=== PATIENT | male | born 1945 | race Caucasian/White ===

== ENCOUNTER 2020-10-21 06:15 | Inpatient (IN) | payer BC, OTHER ==
[2020-10-21 06:32] VITALS: BMI 28.8
[2020-10-21] MEDS ORDERED: SODIUM CHLORIDE 0.9% 500 ML INFUS.BAG IV ONE ×2 (06:49→07:44)
[2020-10-21] MEDS ORDERED: dilTIAZem HCL 50 MG/10 ML - 10 ML VIAL IVPUSH ONE (06:49)
[2020-10-21] MEDS ORDERED: dilTIAZem HCL 125 MG/25 ML - 25 ML VIAL ONE (06:51)
[2020-10-21] MEDS ORDERED: dilTIAZem HCL 60 MG TABLET PO ONE (07:00)
[2020-10-21 07:10] LABS: HEMATOCRIT 26.9 % (35.4-49); HEMOGLOBIN 8.7 GM/dL (11.7-16.9); MCH 25.4 pg (25.7-33.7); MCHC 32.3 g/dl (32.0-35.9); MEAN CELL VOLUME 78.5 fl (80-96); MEAN PLT VOLUME 8.3 fl (7.5-11.1); PLATELET COUNT 173 10^3/uL (134-434); RBC 3.43 M/mm3 (4.00-5.60); RDW 20.8 % (11.9-15.9)
[2020-10-21 07:20] LABS: INR 1.69 (0.83-1.09); PROTHROMBIN TIME (PATIENT) 20.1 SEC (9.7-13.0)
[2020-10-21 07:33] LABS: CHLORIDE 95 mmol/L (98-107); SODIUM 131 mmol/L (136-145)
[2020-10-21 07:35] LABS: ALBUMIN 1.3 g/dl (3.4-5.0); ANION GAP 11 MMOL/L (8-16); BLOOD UREA NITROGEN 28.7 mg/dL (7-18); CALCIUM 7.9 mg/dL (8.5-10.1); CO2 25 mmol/L (21-32); GLUCOSE,RANDOM 75 mg/dL (74-106)
[2020-10-21 07:38] LABS: SGPT/ALT 70 U/L (13-61)
[2020-10-21 07:39] LABS: CREATININE 1.3 mg/dL (0.55-1.3); SGOT/AST 68 U/L (15-37)
[2020-10-21 07:40] LABS: BILIRUBIN,TOTAL 1.4 mg/dL (0.2-1); TOT PROT 6.2 g/dl (6.4-8.2)
[2020-10-21 07:41] LABS: ALK PHOS 256 U/L (45-117)
[2020-10-21] MEDS ORDERED: PT OWN MED DRAWER 7, Y5N ONE (09:18)
[2020-10-21] MEDS ORDERED: dilTIAZem HCL 60 MG TABLET ONE (09:20)
[2020-10-21 09:24] LABS: ANISOCYTOSIS 2+; MACROCYTOSIS 0; PLATELET ESTIMATE NORMAL
[2020-10-21 11:40] LABS: ACTIVATED PTT 31.9 SECONDS (25.2-36.5)
[2020-10-21 11:44] LABS: MAGNESIUM 1.8 mg/dL (1.8-2.4)
[2020-10-21] MEDS ORDERED: DOCUSATE SODIUM 100 MG CAPSULE (FP) PO PRN (17:41)
[2020-10-21] MEDS ORDERED: HEPARIN NA (PORCINE) 5,000 UNITS/ML 1ML VIAL IVPUSH PRN (17:44)
[2020-10-21] MEDS ORDERED: AMIODARONE IN DEXTROSE,ISO-OSM 360 MG/200 ML BAG ONE (18:07)
[2020-10-21] MEDS: HEPARIN SOD,PORK IN 0.45% NACL 25,000 UNITS/500 ML INFUS.BAG IVPB SCH (19:26)
[2020-10-21] MEDS: MIRTAZAPINE 15 MG TABLET (FP) PO SCH (21:55)
[2020-10-21] MEDS ORDERED: METOPROLOL TARTRATE 25 MG TABLET (FP) PO SCH (22:00)
[2020-10-22] MEDS ORDERED: DEXTROSE 50%-WATER - 25 GM/50 ML VIAL IVPUSH ONE (01:26)
[2020-10-22] MEDS ORDERED: DEXTROSE 50%-WATER 25 GM/50 ML DISP.SYRIN ONE (01:33)
[2020-10-22] MEDS: HEPARIN NA (PORCINE) 5,000 UNITS/ML 1ML VIAL IVPUSH PRN ×2 (03:03→14:57)
[2020-10-22] MEDS: INSULIN SLIDING SCALE (NOVOLOG) 1 VIAL SQ SCH ×3 (06:05→18:11)
[2020-10-22] MEDS: TAMSULOSIN HCL 0.4 MG CAP PO SCH (09:50)
[2020-10-22] MEDS: ALLOPURINOL 300 MG TABLET (FP) PO SCH (09:50)
[2020-10-22 13:08] LABS: HEMATOCRIT 24.5 % (35.4-49); HEMOGLOBIN 8.1 GM/dL (11.7-16.9); MCH 25.7 pg (25.7-33.7); MCHC 33.1 g/dl (32.0-35.9); MEAN CELL VOLUME 77.7 fl (80-96); MEAN PLT VOLUME 8.2 fl (7.5-11.1); PLATELET COUNT 148 10^3/uL (134-434); RBC 3.16 M/mm3 (4.00-5.60); RDW 20.5 % (11.9-15.9); WHITE BLOOD COUNT 9.7 K/mm3 (4.0-10.0)
[2020-10-22 13:37] LABS: ALBUMIN 1.1 g/dl (3.4-5.0); BLOOD UREA NITROGEN 24.7 mg/dL (7-18); CALCIUM 7.8 mg/dL (8.5-10.1)
[2020-10-22 13:40] LABS: BILIRUBIN,TOTAL 1.5 mg/dL (0.2-1); TOT PROT 5.3 g/dl (6.4-8.2)
[2020-10-22] MEDS: METOPROLOL TARTRATE 25 MG TABLET (FP) PO SCH ×2 (13:49→22:05)
[2020-10-22 14:07] LABS: ANISOCYTOSIS 3+; MACROCYTOSIS 0; OVALOCYTE 1+; PLATELET ESTIMATE DECREASED; TARGET CELLS 1+
[2020-10-22] MEDS: HEPARIN SOD,PORK IN 0.45% NACL 25,000 UNITS/500 ML INFUS.BAG IVPB SCH (16:59)
[2020-10-22] MEDS: MIRTAZAPINE 15 MG TABLET (FP) PO SCH (22:05)
[2020-10-23] MEDS: HEPARIN NA (PORCINE) 5,000 UNITS/ML 1ML VIAL IVPUSH PRN ×3 (02:25→19:33)
[2020-10-23] MEDS: METOPROLOL TARTRATE 25 MG TABLET (FP) PO SCH ×3 (05:58→21:29)
[2020-10-23] MEDS: INSULIN SLIDING SCALE (NOVOLOG) 1 VIAL SQ SCH ×3 (06:04→17:02)
[2020-10-23 08:56] LABS: HEMATOCRIT 25.8 % (35.4-49); HEMOGLOBIN 8.4 GM/dL (11.7-16.9); MCH 25.4 pg (25.7-33.7); MCHC 32.6 g/dl (32.0-35.9); MEAN CELL VOLUME 77.9 fl (80-96); MEAN PLT VOLUME 8.6 fl (7.5-11.1); PLATELET COUNT 185 10^3/uL (134-434); RBC 3.31 M/mm3 (4.00-5.60); RDW 20.7 % (11.9-15.9); WHITE BLOOD COUNT 10.5 K/mm3 (4.0-10.0)
[2020-10-23 09:24] LABS: ALBUMIN 1.1 g/dl (3.4-5.0); CALCIUM 7.6 mg/dL (8.5-10.1)
[2020-10-23 09:25] LABS: MAGNESIUM 1.8 mg/dL (1.8-2.4)
[2020-10-23 09:26] LABS: BLOOD UREA NITROGEN 21.5 mg/dL (7-18)
[2020-10-23 09:28] LABS: PHOSPHOROUS 2.7 mg/dL (2.5-4.9)
[2020-10-23 09:29] LABS: BILIRUBIN,TOTAL 1.4 mg/dL (0.2-1); TOT PROT 5.1 g/dl (6.4-8.2)
[2020-10-23] MEDS: TAMSULOSIN HCL 0.4 MG CAP PO SCH (09:30)
[2020-10-23] MEDS: ALLOPURINOL 300 MG TABLET (FP) PO SCH (09:30)
[2020-10-23] MEDS: HEPARIN SOD,PORK IN 0.45% NACL 25,000 UNITS/500 ML INFUS.BAG IVPB SCH ×3 (09:33→18:44)
[2020-10-23 10:28] LABS: ANISOCYTOSIS 1+; MACROCYTOSIS 0; PLATELET ESTIMATE NORMAL
[2020-10-23] MEDS: MIRTAZAPINE 15 MG TABLET (FP) PO SCH (21:29)
[2020-10-24] MEDS: HEPARIN NA (PORCINE) 5,000 UNITS/ML 1ML VIAL IVPUSH PRN ×2 (03:09→12:39)
[2020-10-24] MEDS: METOPROLOL TARTRATE 25 MG TABLET (FP) PO SCH ×3 (06:10→21:39)
[2020-10-24] MEDS: INSULIN SLIDING SCALE (NOVOLOG) 1 VIAL SQ SCH ×3 (06:19→16:56)
[2020-10-24] MEDS ORDERED: PT OWN MED DRAWER 7, Y5N ONE ×2 (08:55→14:45)
[2020-10-24] MEDS: TAMSULOSIN HCL 0.4 MG CAP PO SCH (09:14)
[2020-10-24] MEDS: ALLOPURINOL 300 MG TABLET (FP) PO SCH (09:14)
[2020-10-24 11:29] LABS: HEMATOCRIT 24.8 % (35.4-49); HEMOGLOBIN 8.1 GM/dL (11.7-16.9); MCH 25.5 pg (25.7-33.7); MCHC 32.5 g/dl (32.0-35.9); MEAN CELL VOLUME 78.4 fl (80-96); MEAN PLT VOLUME 8.3 fl (7.5-11.1); PLATELET COUNT 197 10^3/uL (134-434); RBC 3.16 M/mm3 (4.00-5.60); RDW 20.4 % (11.9-15.9); WHITE BLOOD COUNT 9.9 K/mm3 (4.0-10.0)
[2020-10-24 11:56] LABS: CALCIUM 7.4 mg/dL (8.5-10.1)
[2020-10-24 11:57] LABS: MAGNESIUM 1.8 mg/dL (1.8-2.4)
[2020-10-24 12:00] LABS: PHOSPHOROUS 2.2 mg/dL (2.5-4.9)
[2020-10-24] MEDS ORDERED: SODIUM CHLORIDE 1,000 ML IV SCH (12:00)
[2020-10-24 12:01] LABS: BILIRUBIN,TOTAL 1.4 mg/dL (0.2-1); TOT PROT 5.2 g/dl (6.4-8.2)
[2020-10-24] MEDS: HEPARIN SOD,PORK IN 0.45% NACL 25,000 UNITS/500 ML INFUS.BAG IVPB SCH ×2 (12:42→18:17)
[2020-10-24 13:35] LABS: ANISOCYTOSIS 0; MACROCYTOSIS 0; OVALOCYTE 0; PLATELET ESTIMATE NORMAL
[2020-10-24] MEDS ORDERED: METOPROLOL TARTRATE 5 MG/5 ML VIAL IVPUSH ONE ×2 (15:58→16:36)
[2020-10-24] MEDS: SODIUM PHOSPHATE - 30 MM in SODIUM CHLORIDE 500 ML IVPB ONE ×3 (16:15→18:47)
[2020-10-24] MEDS ORDERED: HEPARIN NA (PORCINE) 5,000 UNITS/ML 1ML VIAL IVPUSH PRN (18:08)
[2020-10-24] MEDS: MIRTAZAPINE 15 MG TABLET (FP) PO SCH (21:39)
[2020-10-25] MEDS ORDERED: PT OWN MED DRAWER 7, Y5N ONE ×2 (00:23→16:52)
[2020-10-25] MEDS: HEPARIN SOD,PORK IN 0.45% NACL 25,000 UNITS/500 ML INFUS.BAG IVPB SCH ×2 (03:39→17:15)
[2020-10-25] MEDS: METOPROLOL TARTRATE 25 MG TABLET (FP) PO SCH ×3 (06:20→21:28)
[2020-10-25] MEDS: INSULIN SLIDING SCALE (NOVOLOG) 1 VIAL SQ SCH ×3 (06:23→17:00)
[2020-10-25 08:02] LABS: CHLORIDE 98 mmol/L (98-107); SODIUM 130 mmol/L (136-145)
[2020-10-25 08:04] LABS: HEMATOCRIT 24.3 % (35.4-49); HEMOGLOBIN 7.9 GM/dL (11.7-16.9); MCH 25.4 pg (25.7-33.7); MCHC 32.4 g/dl (32.0-35.9); MEAN CELL VOLUME 78.6 fl (80-96); MEAN PLT VOLUME 8.7 fl (7.5-11.1); PLATELET COUNT 191 10^3/uL (134-434); RDW 20.3 % (11.9-15.9); WHITE BLOOD COUNT 9.9 K/mm3 (4.0-10.0)
[2020-10-25 08:05] LABS: ANION GAP 6 MMOL/L (8-16); BLOOD UREA NITROGEN 19.4 mg/dL (7-18); CO2 26 mmol/L (21-32)
[2020-10-25 08:06] LABS: GLUCOSE,RANDOM 89 mg/dL (74-106)
[2020-10-25 08:08] LABS: SGOT/AST 21 U/L (15-37); SGPT/ALT 27 U/L (13-61)
[2020-10-25 08:09] LABS: CREATININE 0.8 mg/dL (0.55-1.3); PHOSPHOROUS 3.7 mg/dL (2.5-4.9)
[2020-10-25 08:10] LABS: BILIRUBIN,TOTAL 1.2 mg/dL (0.2-1); TOT PROT 4.9 g/dl (6.4-8.2)
[2020-10-25 08:11] LABS: ALK PHOS 170 U/L (45-117)
[2020-10-25 08:17] LABS: CALCIUM 6.9 mg/dL (8.5-10.1)
[2020-10-25] MEDS: ALLOPURINOL 300 MG TABLET (FP) PO SCH (10:40)
[2020-10-25] MEDS: TAMSULOSIN HCL 0.4 MG CAP PO SCH (10:41)
[2020-10-25] MEDS ORDERED: INSULIN (NOVOLOG) ASPART 100 UNITS/ML 10ML VIAL ONE (10:59)
[2020-10-25] MEDS: HEPARIN NA (PORCINE) 5,000 UNITS/ML 1ML VIAL IVPUSH PRN (14:15)
[2020-10-25 19:06] LABS: EPI CELLS 13 /uL (0-25.1); HYALINE CASTS 3 /uL (0-3.1); PH,URINE 5.5 (5.0-8.0); URINE APPEARANCE CLOUDY; URINE BACTERIA 1775 /uL (0-1359); URINE BILIRUBIN NEGATIVE (NEGATIVE); URINE COLOR DK YELLOW; URINE GLUCOSE (UA) NEGATIVE (NEGATIVE); URINE KETONE 1+ (NEGATIVE); URINE LEUK ESTERASE NEGATIVE (NEGATIVE); URINE NITRITE NEGATIVE (NEGATIVE); URINE PROTEIN 1+ (NEGATIVE); URINE RBC 9 /uL (0-23.9); URINE WBC 34 /uL (0-25.8)
[2020-10-25 19:36] LABS: YEAST NEGATIVE (NEGATIVE)
[2020-10-25 19:39] LABS: PH,URINE 7.5 (5.0-8.0); URINE APPEARANCE TURBID; URINE BILIRUBIN NEGATIVE (NEGATIVE); URINE COLOR YELLOW; URINE GLUCOSE (UA) NEGATIVE (NEGATIVE); URINE KETONE NEGATIVE (NEGATIVE); URINE PROTEIN 100 (NEGATIVE)
[2020-10-25 19:40] LABS: EPI CELLS 84.3 /uL (0-25.1); URINE BACTERIA 8419.3 /uL (0-1359); URINE LEUK ESTERASE LARGE (NEGATIVE); URINE NITRITE NEGATIVE (NEGATIVE); URINE RBC 482.6 /uL (0-23.9); URINE UROBILINOGEN 0.2 mg/dL (0.2-1.0); URINE WBC 33893.4 /uL (0-25.8); YEAST NEGATIVE (NEGATIVE)
[2020-10-25] MEDS: MIRTAZAPINE 15 MG TABLET (FP) PO SCH (21:28)
[2020-10-26] MEDS: INSULIN SLIDING SCALE (NOVOLOG) 1 VIAL SQ SCH ×3 (06:24→17:20)
[2020-10-26] MEDS: METOPROLOL TARTRATE 25 MG TABLET (FP) PO SCH ×3 (06:36→21:13)
[2020-10-26 09:01] LABS: HEMATOCRIT 22.9 % (35.4-49); HEMOGLOBIN 7.3 GM/dL (11.7-16.9); MCH 25.3 pg (25.7-33.7); MEAN CELL VOLUME 79.1 fl (80-96); MEAN PLT VOLUME 9.1 fl (7.5-11.1); PLATELET COUNT 187 10^3/uL (134-434); RDW 20.6 % (11.9-15.9); WHITE BLOOD COUNT 11.1 K/mm3 (4.0-10.0)
[2020-10-26 09:29] LABS: ALBUMIN 0.9 g/dl (3.4-5.0); CALCIUM 7.1 mg/dL (8.5-10.1)
[2020-10-26 09:32] LABS: CREATININE 0.8 mg/dL (0.55-1.3)
[2020-10-26 09:34] LABS: BILIRUBIN,TOTAL 1.8 mg/dL (0.2-1); TOT PROT 4.7 g/dl (6.4-8.2)
[2020-10-26] MEDS: HEPARIN SOD,PORK IN 0.45% NACL 25,000 UNITS/500 ML INFUS.BAG IVPB SCH (09:54)
[2020-10-26] MEDS: TAMSULOSIN HCL 0.4 MG CAP PO SCH (09:54)
[2020-10-26] MEDS: ALLOPURINOL 300 MG TABLET (FP) PO SCH (09:54)
[2020-10-26] MEDS ORDERED: CEFTRIAXONE 1 GM in DEXTROSE 5%-WATER - 50 ML IVPB SCH (15:30)
[2020-10-26] MEDS ORDERED: DEXTROSE 5%-WATER - 50 ML IVPB ONE (16:11)
[2020-10-26] MEDS ORDERED: cefTRIAXone SODIUM 1 GM VIAL ONE (16:11)
[2020-10-26] MEDS: MIRTAZAPINE 15 MG TABLET (FP) PO SCH (21:13)
[2020-10-27] MEDS: METOPROLOL TARTRATE 25 MG TABLET (FP) PO SCH ×3 (06:12→22:23)
[2020-10-27] MEDS: INSULIN SLIDING SCALE (NOVOLOG) 1 VIAL SQ SCH ×3 (06:13→18:29)
[2020-10-27 08:11] LABS: HEMATOCRIT 20.3 % (35.4-49); MCH 25.7 pg (25.7-33.7); MCHC 32.6 g/dl (32.0-35.9); MEAN CELL VOLUME 78.8 fl (80-96); MEAN PLT VOLUME 8.6 fl (7.5-11.1); PLATELET COUNT 185 10^3/uL (134-434); RBC 2.57 M/mm3 (4.00-5.60)
[2020-10-27] MEDS: TAMSULOSIN HCL 0.4 MG CAP PO SCH (08:40)
[2020-10-27 08:42] LABS: HEMOGLOBIN 6.6 GM/dL (11.7-16.9)
[2020-10-27 08:46] LABS: BILIRUBIN,TOTAL 0.8 mg/dL (0.2-1); TOT PROT 4.7 g/dl (6.4-8.2)
[2020-10-27 08:48] LABS: CALCIUM 7.2 mg/dL (8.5-10.1)
[2020-10-27 08:49] LABS: CREATININE 0.8 mg/dL (0.55-1.3)
[2020-10-27] MEDS ORDERED: MEROPENEM 1 GM in DEXTROSE 5%-WATER 100 ML IVPB SCH (10:00)
[2020-10-27] MEDS ORDERED: MEROPENEM 1 GM VIAL (RESTRICTED TO ID) IVPB ONE (10:33)
[2020-10-27] MEDS ORDERED: DEXTROSE 5%-WATER 100 ML IVPB ONE (10:34)
[2020-10-27] MEDS: ALLOPURINOL 300 MG TABLET (FP) PO SCH (10:35)
[2020-10-27] MEDS: HEPARIN SOD,PORK IN 0.45% NACL 25,000 UNITS/500 ML INFUS.BAG IVPB SCH (10:54)
[2020-10-27] MEDS ORDERED: PT OWN MED DRAWER 7, Y5N ONE (12:38)
[2020-10-27] MEDS: ERTAPENEM SODIUM 1 GM in SODIUM CHLORIDE 50 ML IVPB SCH (18:30)
[2020-10-27] MEDS: MIRTAZAPINE 15 MG TABLET (FP) PO SCH (22:24)
[2020-10-28] MEDS: METOPROLOL TARTRATE 25 MG TABLET (FP) PO SCH ×3 (06:12→22:42)
[2020-10-28] MEDS: INSULIN SLIDING SCALE (NOVOLOG) 1 VIAL SQ SCH ×3 (06:44→17:30)
[2020-10-28 08:25] LABS: HEMATOCRIT 27.6 % (35.4-49); HEMOGLOBIN 9.3 GM/dL (11.7-16.9); MCH 26.7 pg (25.7-33.7); MCHC 33.5 g/dl (32.0-35.9); MEAN CELL VOLUME 79.5 fl (80-96); MEAN PLT VOLUME 8.2 fl (7.5-11.1); PLATELET COUNT 194 10^3/uL (134-434); RBC 3.47 M/mm3 (4.00-5.60); RDW 19.3 % (11.9-15.9); WHITE BLOOD COUNT 12.5 K/mm3 (4.0-10.0)
[2020-10-28 08:54] LABS: CREATININE 0.8 mg/dL (0.55-1.3)
[2020-10-28 08:55] LABS: BLOOD UREA NITROGEN 21.3 mg/dL (7-18); CALCIUM 7.5 mg/dL (8.5-10.1); TOT PROT 5.3 g/dl (6.4-8.2)
[2020-10-28 08:57] LABS: MAGNESIUM 1.7 mg/dL (1.8-2.4)
[2020-10-28 08:58] LABS: PHOSPHOROUS 2.5 mg/dL (2.5-4.9)
[2020-10-28 09:01] LABS: ALBUMIN 1.2 g/dl (3.4-5.0); BILIRUBIN,TOTAL 1.3 mg/dL (0.2-1)
[2020-10-28] MEDS ORDERED: PT OWN MED DRAWER 7, Y5N ONE (10:55)
[2020-10-28] MEDS: TAMSULOSIN HCL 0.4 MG CAP PO SCH (10:58)
[2020-10-28] MEDS: ERTAPENEM SODIUM 1 GM in SODIUM CHLORIDE 50 ML IVPB SCH (10:58)
[2020-10-28] MEDS: ALLOPURINOL 300 MG TABLET (FP) PO SCH (10:58)
[2020-10-28] MEDS: MIRTAZAPINE 15 MG TABLET (FP) PO SCH (22:41)
[2020-10-29] MEDS: METOPROLOL TARTRATE 25 MG TABLET (FP) PO SCH ×3 (06:42→21:39)
[2020-10-29] MEDS: INSULIN SLIDING SCALE (NOVOLOG) 1 VIAL SQ SCH ×3 (07:12→18:39)
[2020-10-29] MEDS ORDERED: PT OWN MED DRAWER 7, Y5N ONE (09:43)
[2020-10-29] MEDS: AMINO ACIDS/PROTEIN HYDROLYS 30 ML LIQUID.PKT PO SCH (09:51)
[2020-10-29] MEDS: TAMSULOSIN HCL 0.4 MG CAP PO SCH (09:52)
[2020-10-29] MEDS: ERTAPENEM SODIUM 1 GM in SODIUM CHLORIDE 50 ML IVPB SCH (09:52)
[2020-10-29] MEDS: ALLOPURINOL 300 MG TABLET (FP) PO SCH (09:52)
[2020-10-29 10:11] LABS: HEMATOCRIT 24.8 % (35.4-49); MCH 25.8 pg (25.7-33.7); MCHC 32.2 g/dl (32.0-35.9); MEAN CELL VOLUME 80.2 fl (80-96); MEAN PLT VOLUME 8.4 fl (7.5-11.1); PLATELET COUNT 181 10^3/uL (134-434); RBC 3.09 M/mm3 (4.00-5.60); RDW 19.1 % (11.9-15.9); WHITE BLOOD COUNT 12.5 K/mm3 (4.0-10.0)
[2020-10-29 10:37] LABS: ALBUMIN 1.1 g/dl (3.4-5.0); BLOOD UREA NITROGEN 20.6 mg/dL (7-18); CALCIUM 7.4 mg/dL (8.5-10.1)
[2020-10-29 10:40] LABS: CREATININE 0.7 mg/dL (0.55-1.3)
[2020-10-29] MEDS: MIRTAZAPINE 15 MG TABLET (FP) PO SCH (21:38)
[2020-10-30] MEDS: METOPROLOL TARTRATE 25 MG TABLET (FP) PO SCH ×3 (06:15→21:16)
[2020-10-30] MEDS: INSULIN SLIDING SCALE (NOVOLOG) 1 VIAL SQ SCH ×3 (06:15→16:56)
[2020-10-30] MEDS ORDERED: PT OWN MED DRAWER 7, Y5N ONE (08:47)
[2020-10-30] MEDS: AMINO ACIDS/PROTEIN HYDROLYS 30 ML LIQUID.PKT PO SCH (08:59)
[2020-10-30] MEDS: TAMSULOSIN HCL 0.4 MG CAP PO SCH (08:59)
[2020-10-30] MEDS: ALLOPURINOL 300 MG TABLET (FP) PO SCH (09:01)
[2020-10-30] MEDS: ERTAPENEM SODIUM 1 GM in SODIUM CHLORIDE 50 ML IVPB SCH (09:02)
[2020-10-30] MEDS: MIRTAZAPINE 15 MG TABLET (FP) PO SCH (21:16)
[2020-10-31] MEDS: METOPROLOL TARTRATE 25 MG TABLET (FP) PO SCH ×3 (05:44→21:58)
[2020-10-31] MEDS: INSULIN SLIDING SCALE (NOVOLOG) 1 VIAL SQ SCH ×3 (06:11→17:10)
[2020-10-31] MEDS: VALSARTAN 40 MG TABLET PO SCH (09:31)
[2020-10-31] MEDS: AMINO ACIDS/PROTEIN HYDROLYS 30 ML LIQUID.PKT PO SCH (09:31)
[2020-10-31] MEDS: TAMSULOSIN HCL 0.4 MG CAP PO SCH (09:31)
[2020-10-31] MEDS ORDERED: PT OWN MED DRAWER 7, Y5N ONE ×2 (09:33→11:55)
[2020-10-31] MEDS: ALLOPURINOL 300 MG TABLET (FP) PO SCH (09:37)
[2020-10-31 11:05] LABS: BASO % 0.3 % (0-2.0); EOS % 0.2 % (0-4.5); HEMOGLOBIN 8.4 GM/dL (11.7-16.9); LYMPH % 3.8 % (8-40); MCH 26.3 pg (25.7-33.7); MCHC 32.2 g/dl (32.0-35.9); MEAN CELL VOLUME 81.6 fl (80-96); MEAN PLT VOLUME 8.3 fl (7.5-11.1); MONO % 6.4 % (3.8-10.2); NEUT % 89.3 % (42.8-82.8); PLATELET COUNT 190 10^3/uL (134-434); RBC 3.18 M/mm3 (4.00-5.60); RDW 19.9 % (11.9-15.9); WHITE BLOOD COUNT 9.8 K/mm3 (4.0-10.0)
[2020-10-31 11:19] LABS: CALCIUM 7.9 mg/dL (8.5-10.1)
[2020-10-31 11:20] LABS: BLOOD UREA NITROGEN 16.1 mg/dL (7-18)
[2020-10-31 11:23] LABS: CREATININE 0.7 mg/dL (0.55-1.3)
[2020-10-31] MEDS: ERTAPENEM SODIUM 1 GM in SODIUM CHLORIDE 50 ML IVPB SCH (12:05)
[2020-10-31] MEDS: MIRTAZAPINE 15 MG TABLET (FP) PO SCH (21:57)
[2020-11-01] MEDS: INSULIN SLIDING SCALE (NOVOLOG) 1 VIAL SQ SCH (06:04)
[2020-11-01] MEDS: METOPROLOL TARTRATE 25 MG TABLET (FP) PO SCH (06:04)
[2020-11-01 08:59] VITALS: BP 113/66; PULSE 98; TEMP 98
[2020-11-01] MEDS: VALSARTAN 40 MG TABLET PO SCH (10:08)
[2020-11-01] MEDS: TAMSULOSIN HCL 0.4 MG CAP PO SCH (10:08)
[2020-11-01] MEDS: ERTAPENEM SODIUM 1 GM in SODIUM CHLORIDE 50 ML IVPB SCH (10:08)
[2020-11-01] MEDS: AMINO ACIDS/PROTEIN HYDROLYS 30 ML LIQUID.PKT PO SCH (10:08)
[2020-11-01] MEDS: ALLOPURINOL 300 MG TABLET (FP) PO SCH (10:09)
== END 2020-11-01 12:19 | DRG 435 ==
LOC: JER 06:15 → JERBED 06:50 → J4W 17:35
PROVIDERS: ADMIT Internal Medicine; ATTEND Internal Medicine
PROC: 0T9330Z Drainage of Right Kidney Pelvis with Drainage Device, Percutaneous Approach (ICD-10-PCS; principal; 2020-10-26)
PROC: 30233N1 Transfusion of Nonautologous Red Blood Cells into Peripheral Vein, Percutaneous Approach (ICD-10-PCS; 2020-10-27)
DX: C25.9 Malignant neoplasm of pancreas, unspecified (principal); E43 Unspecified severe protein-calorie malnutrition; T83.512A Infection and inflammatory reaction due to nephrostomy catheter, initial encounter; I48.19 Other persistent atrial fibrillation; J90 Pleural effusion, not elsewhere classified; C78.00 Secondary malignant neoplasm of unspecified lung; N13.30 Unspecified hydronephrosis; E87.1 Hypo-osmolality and hyponatremia; N39.0 Urinary tract infection, site not specified; E46 Unspecified protein-calorie malnutrition; R64 Cachexia; Z16.12 Extended spectrum beta lactamase (ESBL) resistance; T83.022A Displacement of nephrostomy catheter, initial encounter; E11.649 Type 2 diabetes mellitus with hypoglycemia without coma; I48.91 Unspecified atrial fibrillation; I10 Essential (primary) hypertension; D64.9 Anemia, unspecified; K21.9 Gastro-esophageal reflux disease without esophagitis; I25.10 Atherosclerotic heart disease of native coronary artery without angina pectoris; R41.82 Altered mental status, unspecified; N40.0 Benign prostatic hyperplasia without lower urinary tract symptoms; M10.9 Gout, unspecified; E11.9 Type 2 diabetes mellitus without complications; G30.9 Alzheimer's disease, unspecified; F02.80 Dementia in other diseases classified elsewhere, unspecified severity, without behavioral disturbance, psychotic disturbance, mood disturbance, and anxiety; D50.9 Iron deficiency anemia, unspecified; I25.119 Atherosclerotic heart disease of native coronary artery with unspecified angina pectoris; E78.5 Hyperlipidemia, unspecified; E83.39 Other disorders of phosphorus metabolism; R91.1 Solitary pulmonary nodule; L89.152 Pressure ulcer of sacral region, stage 2; Y83.9 Surgical procedure, unspecified as the cause of abnormal reaction of the patient, or of later complication, without mention of misadventure at the time of the procedure; B96.1 Klebsiella pneumoniae [K. pneumoniae] as the cause of diseases classified elsewhere
CPT/HCPCS: 36415; 36430; 36511; 50432; 71045-TC-FY; 71270-TC; 74178-TC; 76604-TC; 80048; 80053; 80061; 81003; 82272; 82550; 82728; 82962; 83010; 83036; 83540; 83550; 83735; 83880; 84100; 84443; 84484; 85025; 85027; 85045; 85610; 85730; 86850; 86900; 86901; 86922; 87070; 87075; 87086; 87102; 87116; 87186; 87205; 87206; 87210; 93005; 93010; 93306-TC; 99285-25; C9803; J1644; P9038; P9058; Q9967; U0003; U0005